=== PATIENT | male | born 1990 | race Caucasian/White ===

== ENCOUNTER → 2019-12-28 | Emergency (ER) | payer MEDICAID, OTHER ==
[~2019-12-28] VITALS: Ht 177.8 cm; Wt 61.2 kg
[2019-12-28 16:09] LABS: Urine Bacteria NONE SEEN /hpf (None Seen); Urine Blood Negative /uL (Negative); Urine Mucus FEW (None Seen); Urine Specific Gravity 1.031 (1.001-1.035); Urine Sperm PRESENT /hpf (None Seen); Urine WBC 1 /hpf (0 - 3)
[2019-12-28 20:07] LABS: Basophils # (auto) 0.1 10 ^3/uL (0-0.2); Basophils % (auto) 0.6 % (0.0-2.0); Eosinophils # (auto) 0 10 ^3/uL (0-0.8); Eosinophils % (auto) 0.3 % (0.0-7.0); Hematocrit 51.5 % (41.0-53.0); Lymphocytes # (auto) 1.9 10 ^3/uL (0.4-5.4); Lymphocytes % (auto) 20.3 % (10.0-50.0); Mean Corpuscular Hemoglobin 30.6 pg (28.0-32.0); Mean Corpuscular Hgb Conc. 33.1 g/dL (32.0-36.0); Mean Corpuscular Volume 92.7 fL (80.0-100.0); Monocytes # (auto) 0.7 10 ^3/uL (0-1.3); Monocytes % (auto) 7.9 % (0.0-12.0); Neutrophils # (auto) 6.5 10 ^3/uL (1.6-8.6); Neutrophils % (auto) 70.9 % (37.0-80.0); Nucleated Red Blood Cells % 0.1 %; Platelet Count (auto) 299 10^3/uL (140-450); Red Blood Cells 5.56 10^6/uL (4.5-5.90); Red Cell Distribution Width 12.9 % (11.8-14.3); White Blood Cell 9.1 10^3/uL (4.4-10.8)
[2019-12-28 20:27] LABS: Calcium 9.3 mg/dL (8.5-10.1); Potassium 4.3 mmol/L (3.5-5.1)
[2019-12-28 20:33] LABS: Albumin 3.9 g/dL (3.4-5.0); BUN/Creatinine Ratio 13.7; Total Protein 8.9 g/dL (6.4-8.2)
[2019-12-28 21:36] VITALS: BP 129/75
== END | disposition home or self-care (01) ==
LOC: ER 15:20
DX: K64.9 Unspecified hemorrhoids (principal)
CPT/HCPCS: 36415; 74176; 80053; 81001; 83690; 85025